=== PATIENT | male | born 1950 | race Hispanic/Latino ===

== ENCOUNTER 2019-07-31 23:28 | Observation (INO) | payer OTHER, MEDICARE ==
[~2019-07-31] VITALS: Ht 180.3 cm; Wt 81.0 kg
[~2019-07-31 23:28] MED LIST: AMLO5TAB9 PO; ATEN50TA PO; ATOR10TA69 PO; CLON0.1T PO; FINA5TAB41 PO; TAMS0.4C32 PO
[2019-07-31] MEDS ORDERED: NITROGLYCERIN 0.4 MG SL TAB SL ONE (23:37)
[2019-07-31] MEDS ORDERED: ASPIRIN 81MG TAB.CHEW ONE (23:45)
[2019-07-31] MEDS ORDERED: NITROGLYCERIN 1GM/1 INCH PACKET TD ONE (23:56)
[2019-07-31 23:57] LABS: BASOPHILS % (AUTO) 0.4 % (0.0-5.0); HEMATOCRIT 45.4 % (42-54); LYMPHOCYTES % (AUTO) 31.4 % (21.0-51.0); MEAN CORPUSCULAR HEMOGLOBIN 31.8 pg (27.0-33.0); MEAN CORPUSCULAR HGB CONC 33.9 g/dL (32.0-36.0); MEAN CORPUSCULAR VOLUME 93.6 fL (79-99); MONOCYTES % (AUTO) 9.6 % (3.0-13.0); NEUTROPHILS % (AUTO) 53.6 % (40.0-77.0); PLATELET COUNT (AUTO) 191 K/uL (130-400); RED BLOOD CELL COUNT(AUTO) 4.85 MIL/uL (4.50-6.20)
[2019-08-01 00:08] LABS: PROTHROMBIN TIME 10.5 SEC (9.6-11.6)
[2019-08-01 00:09] LABS: CREATININE 0.8 mg/dL (0.5-1.5); POTASSIUM 3.7 mmol/L (3.5-5.1)
[2019-08-01 00:14] LABS: ALBUMIN 3.9 g/dL (3.5-5.0); BILIRUBIN,TOTAL 0.5 mg/dL (0.2-1.0); TOTAL PROTEIN, SERUM 7.7 g/dL (6.0-8.3)
[2019-08-01] MEDS ORDERED: METOPROLOL TARTRATE 1 MG/ML 5ML VIAL IV PRN (05:15)
[2019-08-01] MEDS ORDERED: NITROGLYCERIN 0.4 MG SL TAB SL PRN (05:15)
[2019-08-01] MEDS ORDERED: ACETAMINOPHEN 325 MG TAB PO PRN ×2 (05:15)
[2019-08-01] MEDS ORDERED: ONDANSETRON HCL 4 MG/2 ML VIAL IVP PRN (05:15)
[2019-08-01 06:02] LABS: BASOPHILS % (AUTO) 0.3 % (0.0-5.0); EOSINOPHILS % (AUTO) 4.5 % (0.0-8.0); HEMATOCRIT 36.8 % (42-54); LYMPHOCYTES % (AUTO) 29.5 % (21.0-51.0); MEAN CORPUSCULAR HEMOGLOBIN 31.4 pg (27.0-33.0); MEAN CORPUSCULAR HGB CONC 33.4 g/dL (32.0-36.0); MEAN CORPUSCULAR VOLUME 93.9 fL (79-99); MONOCYTES % (AUTO) 7.5 % (3.0-13.0); NEUTROPHILS % (AUTO) 57.9 % (40.0-77.0); PLATELET COUNT (AUTO) 170 K/uL (130-400); RED BLOOD CELL COUNT(AUTO) 3.92 MIL/uL (4.50-6.20); RED CELL DISTRIBUTION WIDTH 12.1 % (11.0-15.5); WHITE BLOOD COUNT (AUTO) 3.6 K/uL (4.8-10.8)
[2019-08-01 06:07] LABS: CREATININE 0.8 mg/dL (0.5-1.5)
[2019-08-01 06:24] LABS: ALBUMIN 3.2 g/dL (3.5-5.0); BILIRUBIN,TOTAL 0.6 mg/dL (0.2-1.0); MAGNESIUM 1.9 mg/dL (1.80-2.40); PHOSPHORUS 2.9 mg/dL (2.5-4.9); TOTAL PROTEIN, SERUM 6.5 g/dL (6.0-8.3)
[2019-08-01] MEDS ORDERED: DEXTROSE 50%-WATER 50 ML DISP.SYRIN IV PRN (08:15)
[2019-08-01] MEDS ORDERED: LACTULOSE 20 GM/30 ML UDCUP PO PRN (08:15)
[2019-08-01] MEDS ORDERED: LIDOCAINE HCL-MPF 1% 2ML VIAL IV PRN (08:15)
[2019-08-01] MEDS ORDERED: POTASSIUM CHLORIDE 20 MEQ ERTAB PO PRN (08:15)
[2019-08-01] MEDS ORDERED: POTASSIUM CHLORIDE 10% ELIXIR 20 MEQ/15 ML UDCUP PO PRN (08:15)
[2019-08-01] MEDS ORDERED: GLUCAGON 1MG KIT 1 MG ML IM PRN (08:15)
[2019-08-01] MEDS ORDERED: POTASSIUM CHLORIDE 20MEQ/100ML 100 ML IV PRN (08:15)
[2019-08-01] MEDS ORDERED: MORPHINE SULFATE 2 MG/ML 1ML SYG IM PRN (08:30)
[2019-08-01] MEDS: FAMOTIDINE/PF 20 MG/2 ML VIAL IV SCH ×2 (09:00→21:56)
[2019-08-01] MEDS: HEPARIN SODIUM 5000UNIT/ML 1ML VIAL SQ SCH ×2 (09:00→21:56)
[2019-08-01] MEDS: ASPIRIN 81MG TAB.CHEW PO SCH (09:00)
[2019-08-01] MEDS ORDERED: HEPARIN SODIUM 5000UNIT/ML 1ML VIAL ONE (09:28)
[2019-08-01] MEDS ORDERED: FAMOTIDINE/PF 20 MG/2 ML VIAL IV ONE (09:29)
[2019-08-01 10:10] LABS: TROPONIN I 0.93 ng/mL (0.00-0.06)
[2019-08-01 11:00] VITALS: BP 137/75
[2019-08-01] MEDS: INSULIN HUMULIN R 100 UNIT/ML 3ML SQ SCH ×3 (12:00→21:00)
[2019-08-01] MEDS: AMLODIPINE BESYLATE 5 MG TAB PO SCH (12:41)
[2019-08-01 15:51] LABS: TROPONIN I 1.95 ng/mL (0.00-0.06)
[2019-08-01 16:00] VITALS: BP 138/79
[2019-08-01] MEDS ORDERED: MORPHINE SULFATE 2 MG/ML 1ML SYG IV PRN (16:30)
[2019-08-01] MEDS ORDERED: REGADENOSON 0.4 MG/5 ML PF SYG IVP SCH (17:45)
[2019-08-01 20:44] VITALS: BP 154/80
[2019-08-01 22:07] LABS: TROPONIN I 1.89 ng/mL (0.00-0.06)
[2019-08-02 00:01] VITALS: BP 134/70
[2019-08-02 00:25] LABS: APPEARANCE,URINE Cloudy (CLEAR); BILIRUBIN,URINE Negative (NEGATIVE); COLOR,URINE Yellow (YELLOW); GLUCOSE, URINE (UA) Negative (NEGATIVE); KETONES,URINE Negative (NEGATIVE); LEUKOCYTE ESTERASE ,URINE Large (NEGATIVE); NITRATE,URINE Negative (NEGATIVE); OCCULT BLOOD,URINE Negative (NEGATIVE); PH,URINE 6.5 (5.0-8.0); PROTEIN,URINE Negative (NEGATIVE)
[2019-08-02 00:34] LABS: BACTERIA,URINE Moderate /HPF (None Seen); WBC,URINE 51-100 /HPF (0-1)
[2019-08-02 03:10] VITALS: BP 129/76
[2019-08-02] MEDS: INSULIN HUMULIN R 100 UNIT/ML 3ML SQ SCH ×3 (06:00→11:30)
[2019-08-02 06:08] LABS: BASOPHILS % (AUTO) 0.4 % (0.0-5.0); EOSINOPHILS % (AUTO) 3.1 % (0.0-8.0); HEMATOCRIT 40.2 % (42-54); LYMPHOCYTES % (AUTO) 19.9 % (21.0-51.0); MEAN CORPUSCULAR HEMOGLOBIN 31.8 pg (27.0-33.0); MEAN CORPUSCULAR HGB CONC 33.6 g/dL (32.0-36.0); MEAN CORPUSCULAR VOLUME 94.6 fL (79-99); MONOCYTES % (AUTO) 9.2 % (3.0-13.0); NEUTROPHILS % (AUTO) 67.2 % (40.0-77.0); PLATELET COUNT (AUTO) 163 K/uL (130-400); RED BLOOD CELL COUNT(AUTO) 4.25 MIL/uL (4.50-6.20); RED CELL DISTRIBUTION WIDTH 12.1 % (11.0-15.5); WHITE BLOOD COUNT (AUTO) 5.1 K/uL (4.8-10.8)
[2019-08-02 06:17] LABS: HEMOGLOBIN A1C 6.5 % (4.0-6.0)
--- NOTE | 2019-08-02 06:28 | NUR ---
PATIENT UPDATE Pt underwent a lexiscan stress test last night. Slept well overnight, no chest pain, no shortness of breath. On tele monitoring, running sinus bradycardia with first degree av block with rates in the low 40's to low 50's . Blood sugar last night at 224, no coverage given since pt just ate something after being npo for almost a whole day for procedures, 116 this am. Instructed to call for assistance should he need to get up to the restroom bec of his heart rate going down as low as the 40's, possibility of feeling lightheaded getting up and fall, verbalized understanding. Urine sent to lab, negative for nitrates but cloudy with mod amt of bacteria.
[2019-08-02 06:35] LABS: MAGNESIUM 1.8 mg/dL (1.80-2.40); PHOSPHORUS 3.1 mg/dL (2.5-4.9); POTASSIUM 3.9 mmol/L (3.5-5.1); THYROID STIMULATING HORMONE 5.95 uIU/mL (0.36-3.74)
[2019-08-02 06:42] LABS: % IRON SATURATION 26.5 % (30-44)
[2019-08-02 08:00] VITALS: BP 135/90
[2019-08-02] MEDS ORDERED: CEFTRIAXONE SODIUM 1 GM IVP SCH (08:45)
[2019-08-02] MEDS: FAMOTIDINE/PF 20 MG/2 ML VIAL IV SCH (08:48)
[2019-08-02] MEDS: FERROUS SULFATE 325 MG TABLET.DR PO SCH ×2 (08:48→12:00)
[2019-08-02] MEDS: AMLODIPINE BESYLATE 5 MG TAB PO SCH (08:48)
[2019-08-02] MEDS: ASPIRIN 81MG TAB.CHEW PO SCH (08:48)
[2019-08-02] MEDS ORDERED: LOSA25TA41 PO (09:03)
[2019-08-02] MEDS ORDERED: ATOR40TA71 PO (09:03)
[2019-08-02] MEDS ORDERED: CLOP75TA32 PO (09:03)
[2019-08-02] MEDS: HEPARIN SODIUM 5000UNIT/ML 1ML VIAL SQ SCH (09:28)
[2019-08-02 11:19] VITALS: BP 161/78
[2019-08-02] MEDS ORDERED: MACR100 PO (13:29)
[2019-08-02] MEDS ORDERED: ATORVASTATIN CALCIUM 20 MG TABLET PO SCH (21:00)
== END 2019-08-02 15:40 | disposition home or self-care (01) ==
LOC: EDH 23:28 → EDHIP 08-01 00:45 → 4DH 08-01 10:10
PROVIDERS: ADMIT Internal Medicine; ATTEND Internal Medicine
DX: I44.0 Atrioventricular block, first degree (principal); E78.5 Hyperlipidemia, unspecified; F41.9 Anxiety disorder, unspecified; I10 Essential (primary) hypertension; N40.0 Benign prostatic hyperplasia without lower urinary tract symptoms; R79.89 Other specified abnormal findings of blood chemistry; D50.9 Iron deficiency anemia, unspecified; N39.0 Urinary tract infection, site not specified
CPT/HCPCS: 36415 ×3; 71045 ×2; 78452; 80048; 80053 ×2; 80061; 81001; 82550 ×4; 82728; 82948 ×4; 83036; 83540; 83550; 83690; 83735 ×2; 83874 ×3; 83880; 84100 ×2; 84439; 84443; 84484 ×5; 85025 ×3; 85610; 85730; 87077; 87088; 87186; 93005 ×4; 93017; 93306; 93356; 96365; 96372 ×2; 96375; 96376; 99284; A9500 ×2; G0378 ×25; J0696; J1644 ×4; J2405; J2785; J3490 ×3; 96374

== ENCOUNTER → 2022-02-01 | Outpatient (CLI) | payer OTHER ==
[~2022-02-01] MED LIST changes: -AMLO5TAB9 PO; -ATEN50TA PO; -ATOR10TA69 PO; -CLON0.1T PO; +LEVO50TA11 PO; +METF-444 PO; -TAMS0.4C32 PO; +TAMSULOSIN PO
== END | disposition home or self-care (01) ==
LOC: SHCH 15:18
PROVIDERS: ATTEND Internal Medicine Cardiovascular Disease
DX: I08.0 Rheumatic disorders of both mitral and aortic valves (principal); I11.9 Hypertensive heart disease without heart failure; I25.10 Atherosclerotic heart disease of native coronary artery without angina pectoris; E11.9 Type 2 diabetes mellitus without complications; E78.5 Hyperlipidemia, unspecified; E03.9 Hypothyroidism, unspecified; Z95.1 Presence of aortocoronary bypass graft
CPT/HCPCS: 93306